=== PATIENT | female | born 1965 | race American Indian/Alaskan Native ===

== ENCOUNTER 2017-04-03 09:18 | Emergency (ER) | payer MEDICAID ==
[2017-04-03 13:39] LABS: Valproate < 2.8 ug/mL (50-100)
[2017-04-03] MEDS ORDERED: KEPPRA 1,000 MG/NS 0.75% 100ML 1,000 MG/100 ML BAG IV ONE (16:26)
[2017-04-03 16:37] LABS: Basophils % (Auto) 0.2 % (0.0-1.8); Eosinophils % (Auto) 0.1 % (0.0-4.3); Hematocrit 36.7 % (30.3-42.9); Hemoglobin 12.7 gm/dl (10.1-14.3); Mean Corpuscular HGB Conc 35 % (30-34); Mean Corpuscular Hemoglobin 30 pg (28-32); Mean Corpuscular Volume 87 fl (79-97); Platelet Count 172 K/mm3 (140-440); Red Blood Count 4.19 M/mm3 (3.65-5.03); White Blood Count 6.5 K/mm3 (4.5-11.0)
[2017-04-03 16:55] LABS: Anion Gap 17 mmol/L; BUN/Creatinine Ratio 10; Blood Urea Nitrogen 7 mg/dL (7-17); Carbon Dioxide 25 mmol/L (22-30); Chloride 105.1 mmol/L (98-107); Glucose 125 mg/dL (65-100); Potassium 3.4 mmol/L (3.6-5.0); Sodium 144 mmol/L (137-145)
[2017-04-03] MEDS ORDERED: K-DUR PO ONE (17:33)
[2017-04-03] MEDS ORDERED: TORADOL IV ONE (17:34)
--- NOTE | 2017-04-03 17:37 | Emergency Department Report ---
ED Seizure HPI - General Chief Complaint: Seizure Stated Complaint: SEIZURES Time Seen by Provider: 04/03/17 16:10 Source: patient Mode of arrival: Ambulatory Limitations: No Limitations - History of Present Illness Initial Comments: 51-year-old female with past medical history of seizures and glaucoma presents to the hospital after having multiple seizures. He states she has more frequent seizures last 2 days and has had 3 since this morning. Seizures occur while she is sleeping. Patient with the inside of her inner lower lip but no bleeding reported. Positive urinary incontinence. Patient complains of a 2/10 frontal aching headache. Denies nausea, vomiting, fever, focal weakness, focal numbness, or blurred vision. Patient has been compliant with her Keppra and Tegretol. She has been on the same dose for many years. Last seizure was 6-7 years ago. She does not have a neurologist. She was recently placed on prednisone for back pain by her PMD. Denies alcohol and benzo use. PMD: Dr. Rai - Related Data Home Medications Medication Instructions Recorded Confirmed Last Taken carBAMazepine [TEGretol] 0.5 tab PO BID 06/28/13 04/03/17 06/28/13 07:00 levETIRAcetam [Keppra TAB] 1 tab PO BID 06/28/13 04/03/17 06/28/13 07:00 predniSONE [Deltasone] 1 tab PO QDAY 04/03/17 04/03/17 Unknown Previous Rx's Medication Instructions Recorded Last Taken Type levETIRAcetam [Keppra TAB] 750 mg PO BID #60 tablet 04/03/17 Unknown Rx Allergies Allergy/AdvReac Type Severity Reaction Status Date / Time No Known Allergies Allergy Unverified 06/28/13 09:40 ED Review of Systems ROS: Stated complaint: SEIZURES Other details as noted in HPI Comment: All other systems reviewed and negative Other: Constitutional: No fevers chills Eyes: No eye pain visual changes ENT: No ear pain or throat pain Neck: Denies pain Respiratory: Denies cough wheezing shortness of breath Cardiovascular: Denies chest pain, palpitations, syncope GI: Denies abdominal pain, nausea, vomiting, diarrhea : Denies dysuria,y Musculoskeletal: Denies back pain, joint swelling Skin: Denies rash, lesions, erythema Neurologic: As per HPI Psychiatric: Denies suicidal ideation, hallucinations ED Past Medical Hx - Past Medical History Previous Medical History?: Yes Hx Seizures: Yes Additional medical history: glaucoma - Surgical History Past Surgical History?: Yes Additional Surgical History: fibroids removed - Social History Smoking Status: Never Smoker Substance Use Type: None - Medications Home Medications: Home Medications Medication Instructions Recorded Confirmed Last Taken Type carBAMazepine [TEGretol] 0.5 tab PO BID 06/28/13 04/03/17 06/28/13 07:00 History levETIRAcetam [Keppra TAB] 1 tab PO BID 06/28/13 04/03/17 06/28/13 07:00 History levETIRAcetam [Keppra TAB] 750 mg PO BID #60 tablet 04/03/17 Unknown Rx predniSONE [Deltasone] 1 tab PO QDAY 04/03/17 04/03/17 Unknown History ED Physical Exam - General Limitations: No Limitations - Other Other exam information: General: No limitations, patient is alert in no acute distress Head exam: Atraumatic, normocephalic Eyes exam: Normal appearance, pupils equal reactive to light, extraocular movements intact ENT: Moist mucous membrane, normal oropharynx. Mild contusions and her lower inner lip without laceration or bleeding Neck exam: Normal inspection, full range of motion, no meningismus nontender Respiratory exam: Clear to auscultation bilateral, no wheezes, rales, crackles Cardiovascular: Normal rate and rhythm, normal heart sounds Abdomen: Soft, nondistended, and nontender, with normal bowel sounds, no rebound, or guarding Extremity: Full range of motion normal inspection no deformity Back: Normal Inspection, full range of motion, no tenderness Neurologic: Alert, oriented x3, cranial nerves intact, no motor or sensory deficit, [id number] fussiness Psychiatric: normal affect, normal mood Skin: Warm, dry, intact ED Course Vital Signs 04/03/17 04/03/17 04/03/17 09:26 16:33 17:52 Temperature 98.4 F Pulse Rate 100 H 80 Respiratory 16 15 15 Rate Blood Pressure 131/107 Blood Pressure 130/91 [Left] O2 Sat by Pulse 96 100 Oximetry - Reevaluation(s) Reevaluation #1: 04/03/17 17:37 Patient received IV Keppra 1 g. IV Toradol for mild headache - Consultations Consultation #1: 04/03/17 17:[address] Iniguez neurologist rec increase Keppa to 750 mg bid starting tomorrow am. continue 500mg tonight. f/u with neuro ED Medical Decision Making - Lab Data Result diagrams: 04/03/17 16:28 04/03/17 16:28 Lab Results 04/03/17 04/03/17 04/03/17 Range/Units 09:32 09:32 16:28 WBC 6.5 (4.5-11.0) K/mm3 RBC 4.19 (3.65-5.03) M/mm3 Hgb 12.7 (10.1-14.3) gm/dl Hct 36.7 (30.3-42.9) % MCV 87 (79-97) fl MCH 30 (28-32) pg MCHC 35 H (30-34) % RDW 15.0 (13.2-15.2) % Plt Count 172 (140-440) K/mm3 Lymph % (Auto) 25.9 (13.4-35.0) % [place] % (Auto) 4.4 (0.0-7.3) % Eos % (Auto) 0.1 (0.0-4.3) % Baso % (Auto) 0.2 (0.0-1.8) % Lymph # 1.7 (1.2-5.4) K/mm3 [place] # 0.3 (0.0-0.8) K/mm3 Eos # 0.0 (0.0-0.4) K/mm3 Baso # 0.0 (0.0-0.1) K/mm3 Seg Neutrophils % 69.4 (40.0-70.0) % Seg Neutrophils # 4.5 (1.8-7.7) K/mm3 Sodium (137-145) mmol/L Potassium (3.6-5.0) mmol/L Chloride (98-107) mmol/L Carbon Dioxide (22-30) mmol/L Anion Gap mmol/L BUN (7-17) mg/dL Creatinine (0.7-1.2) mg/dL Estimated GFR ml/min BUN/Creatinine Ratio % Glucose (65-100) mg/dL Calcium (8.4-10.2) mg/dL Magnesium (1.7-2.3) mg/dL Phenytoin 0.8 L (10.0-20.0) ug/mL Valproic Acid < 2.8 L (50-100) ug/mL Phenobarbital < 2.4 L (15.0-40.0) mg/L 04/03/17 Range/Units 16:28 WBC (4.5-11.0) K/mm3 RBC (3.65-5.03) M/mm3 Hgb (10.1-14.3) gm/dl Hct (30.3-42.9) % MCV (79-97) fl MCH (28-32) pg MCHC (30-34) % RDW (13.2-15.2) % Plt Count (140-440) K/mm3 Lymph % (Auto) (13.4-35.0) % [place] % (Auto) (0.0-7.3) % Eos % (Auto) (0.0-4.3) % Baso % (Auto) (0.0-1.8) % Lymph # (1.2-5.4) K/mm3 [place] # (0.0-0.8) K/mm3 Eos # (0.0-0.4) K/mm3 Baso # (0.0-0.1) K/mm3 Seg Neutrophils % (40.0-70.0) % Seg Neutrophils # (1.8-7.7) K/mm3 Sodium 144 (137-145) mmol/L Potassium 3.4 L (3.6-5.0) mmol/L Chloride 105.1 (98-107) mmol/L Carbon Dioxide 25 (22-30) mmol/L Anion Gap 17 mmol/L BUN 7 (7-17) mg/dL Creatinine 0.7 (0.7-1.2) mg/dL Estimated GFR > 60 ml/min BUN/Creatinine Ratio 10 % Glucose 125 H (65-100) mg/dL Calcium 9.0 (8.4-10.2) mg/dL Magnesium 2.10 (1.7-2.3) mg/dL Phenytoin (10.0-20.0) ug/mL Valproic Acid (50-100) ug/mL Phenobarbital (15.0-40.0) mg/L - Medical Decision Making Patient received IV Keppra, peel potatoes for mild hypokalemia, and IV Toradol for mild headache Patient will be discharged with increased Keppra dosage and neurology follow-up will be encouraged - Differential Diagnosis breakthrough seizure, visual abnormality, medication noncompliance Critical Care Time: No Critical care attestation.: If time is entered above; I have spent that time in minutes in the direct care of this critically ill patient, excluding procedure time. ED Disposition Clinical Impression: Breakthrough seizure, Hypokalemia Disposition: TO HOME OR SELFCARE Is pt being admited?: No Does the pt Need Aspirin: No Condition: Stable Instructions: Hypokalemia (ED), Recurrent Seizures Adult (ED) Additional Instructions: The dose of Keppra has been increased to 750 mg twice a day. You may take 1-1/ 2 tablet of your 500 mg tablets twice a day. I have prescribed a new prescription was 750 mg tablets. It is very important that you follow up with a neurologist and a primary care doctor for further management. Prescriptions: levETIRAcetam [Keppra TAB] 750 mg PO BID #60 tablet Referrals: GABRIELLA ESPINAL MD [Staff Physician] - 3-5 Days (neurologist ) LUIS RAI MD [Staff Physician] - 3-5 Days (primary care doctor ) Time of Disposition: 18:01
[2017-04-03 17:59] VITALS: BP 130/91
== END 2017-04-03 18:10 | disposition home or self-care (01) ==
LOC: ED 09:18
DX: E87.6 Hypokalemia (principal); R56.9 Unspecified convulsions
CPT/HCPCS: 36415; 80048; 80164; 80184; 80185; 83735; 85025; 96365; 96375; 99284; J1885; J1953